=== PATIENT | female | born 1995 | race Caucasian/White ===

== ENCOUNTER 2020-08-15 10:26 | Emergency (ER) | payer MEDICAID ==
[2020-08-15] MEDS ORDERED: HYDROmorphone 0.5 MG/0.5 ML Syringe IVPUSH ONE (11:26)
[2020-08-15] MEDS ORDERED: Ondansetron 4 MG/2 ML SDV IVPUSH ONE (11:26)
[2020-08-15] MEDS ORDERED: Sodium Chloride 0.9% 10 ML Syringe FLUSH PRN (11:26)
--- NOTE | 2020-08-15 11:38 | EDM.PDOC ---
ED HPI GENERAL MEDICAL PROBLEM - General Chief Complaint: Abdominal Pain Stated Complaint: ABDOMINAL PAIN Time Seen by Provider: 08/15/20 11:07 Source of Information: Reports: Patient, RN Notes Reviewed History Limitations: Reports: No Limitations - History of Present Illness INITIAL COMMENTS - FREE TEXT/NARRATIVE: Patient is a 24-year-old female who presents to the ED for the evaluation of her lower abdominal pain. Patient notes that she was just ending her menses last week, when she had sexual intercourse, with a retained tampon as she forgot that she left it in. She was able to retrieve the tampon after the intercourse. She has been having ongoing lower abdominal pain, with moderate vaginal discomfort and dark vaginal discharge that is malodorous, for the last 2 days. She has not taken any [id number] medications for pain. She also is complaining of some constipation as she has not had a bowel movement since , and is complained of it being a really hard stool. Patient states that the pain is a very sharp pain and she is not felt this pain before ever. She notes that it sticks around her bellybutton and has not migrated to any specific spot in her abdomen. She is also complaining some burning with urination. She feels really hot then cold, and is complaining of some shortness of breath when the pain is at its worst. She is having some nausea but no vomiting. She denies any diarrhea. She is unsure if she could be at this time. Lower Abdomen Pain Score (Numeric/FACES): 8 - Related Data Allergies Allergy/AdvReac Type Severity Reaction Status Date / Time No Known Allergies Allergy Verified 08/15/20 10:41 Home Meds: Home Meds Cefdinir [Omnicef] 300 mg PO BID 14 Days #28 cap 08/15/20 [Rx] Doxycycline [Vibramycin] 100 mg PO BID 14 Days #28 tab 08/15/20 [Rx] Past Medical History HEENT History: Reports: Otitis Media Genitourinary History: Reports: UTI, Recurrent [employer] History: Reports: , Spontaneous Other [employer] History: G1,P0, spont AB1. Dermatologic History: Reports: Psoriasis - Infectious Disease History Infectious Disease History: Reports: Chicken Pox Social & Family History - Tobacco Use Tobacco Use Status *Q: Current Every Day Tobacco User Years of Tobacco use: 5 Packs/Tins Daily: 0.5 - Caffeine Use Caffeine Use: Reports: Coffee - Recreational Drug Use Recreational Drug Use: Yes Recreational Drug Type: Reports: Marijuana/Hashish ED ROS GENERAL - Review of Systems Review Of Systems: Comprehensive ROS is negative, except as noted in HPI. ED EXAM, RENAL/ - Physical Exam Exam: See Below Exam Limited By: No Limitations General Appearance: Alert, WD/WN, No Apparent Distress (pt appears to be in moderate amount of pain and is somewhat tearful on exam.) Respiratory/Chest: No Respiratory Distress, Lungs Clear, Normal Breath Sounds, No Accessory Muscle Use, Chest Non-Tender Cardiovascular: Normal Peripheral Pulses, Regular Rate, Rhythm, No Edema GI/Abdominal: Normal Bowel Sounds, Soft, No Distention, No Mass, Tender (mainly lower abdomen) (Female) Exam: Normal External Exam, Adnexal Tenderness (bilateral with manual exam.), Cervix Motion Tenderness, Vaginal Bleeding (dark malodorous dis charge vs blood in vaginal vault). No: Adnexal Mass Rectal (Female) Exam: Deferred Extremities: Normal Inspection, Normal Capillary Refill Neurological: Alert, Oriented, Normal Cognition, No Motor/Sensory Deficits Psychiatric: Anxious, Tearful Skin Exam: Warm, Dry, Intact, Normal Color, No Rash Course - Vital Signs Last Recorded V/S: Last Vital Signs Temp 98.2 F 08/15/20 13:04 Pulse 78 08/15/20 13:04 Resp 16 08/15/20 13:04 BP 111/59 L 08/15/20 13:04 Pulse Ox 100 08/15/20 13:04 - Orders/Labs/Meds Orders: Active Orders 24 hr Category Date Time Status Peripheral IV Care [RC] . DIRECTED Care 08/15/20 11:26 Ordered Sodium Chloride 0.9% [Saline Flush] Med 08/15/20 11:26 Active 10 ml FLUSH ASDIRECTED PRN Peripheral IV Insertion Adult [OM.PC] Routine Oth 08/15/20 11:26 Ordered Medication Orders Sodium Chloride (Saline Flush) 10 ml FLUSH ASDIRECTED PRN PRN Reason: Keep Vein Open Last Admin: 08/15/20 11:50 Dose: 10 ml Documented by: REESE Labs: Laboratory Tests 08/15/20 08/15/20 08/15/20 Range/Units 12:10 12:10 12:17 WBC 21.59 H (3.98-10.04) K/mm3 RBC 4.30 (3.98-5.22) M/mm3 Hgb 12.3 (11.2-15.7) gm/dl Hct 36.8 (34.1-44.9) % MCV 85.6 (79.4-94.8) fl MCH 28.6 (25.6-32.2) pg MCHC 33.4 (32.2-35.5) g/dl RDW Std Deviation 43.7 (36.4-46.3) fL Plt Count 322 (182-369) K/mm3 MPV 9.2 L (9.4-12.3) fl Neut % (Auto) 85.1 H (34.0-71.1) % Lymph % (Auto) 7.2 L (19.3-51.7) % [place] % (Auto) 7.1 (4.7-12.5) % Eos % (Auto) 0.1 L (0.7-5.8) Baso % (Auto) 0.1 (0.1-1.2) % Neut # (Auto) 18.37 H (1.56-6.13) K/mm3 Lymph # (Auto) 1.55 (1.18-3.74) K/mm3 [place] # (Auto) 1.54 H (0.24-0.36) K/mm3 Eos # (Auto) 0.02 L (0.04-0.36) K/mm3 Baso # (Auto) 0.02 (0.01-0.08) K/mm3 Manual Slide Review Abnormal smear Sodium (136-145) mEq/L Potassium (3.5-5.1) mEq/L Chloride (98-107) mEq/L Carbon Dioxide (21-32) mEq/L Anion Gap (5-15) BUN (7-18) mg/dL Creatinine (0.55-1.02) mg/dL Est Cr Clr Drug Dosing mL/min Estimated GFR (MDRD) (>60) mL/min BUN/Creatinine Ratio (14-18) Glucose (74-106) mg/dL Calcium (8.5-10.1) mg/dL Total Bilirubin (0.2-1.0) mg/dL AST (15-37) U/L ALT (14-59) U/L Alkaline Phosphatase (46-116) U/L C-Reactive Protein (<1.0) mg/dL Total Protein (6.4-8.2) g/dl Albumin (3.4-5.0) g/dl Globulin gm/dL Albumin/Globulin Ratio (1-2) Urine Color Yellow (Yellow) Urine Appearance Clear (Clear) Urine pH 6.0 (5.0-8.0) Ur Specific [place] 1.010 (1.005-1.030) Urine Protein Negative (Negative) Urine Glucose (UA) Negative (Negative) Urine Ketones Negative (Negative) Urine Occult Blood Negative (Negative) Urine Nitrite Negative (Negative) Urine Bilirubin Negative (Negative) Urine Urobilinogen 0.2 (0.2-1.0) Ur Leukocyte Esterase Negative (Negative) Urine RBC 0-5 (0-5) /hpf Urine WBC 0-5 (0-5) /hpf Ur Epithelial Cells 0-5 (0-5) /hpf Urine Bacteria Not seen (FEW) /hpf Urine Mucus Not seen (FEW) /hpf Urine HCG, Qual Negative (NEGATIVE) 08/15/20 Range/Units 12:17 WBC (3.98-10.04) K/mm3 RBC (3.98-5.22) M/mm3 Hgb (11.2-15.7) gm/dl Hct (34.1-44.9) % MCV (79.4-94.8) fl MCH (25.6-32.2) pg MCHC (32.2-35.5) g/dl RDW Std Deviation (36.4-46.3) fL Plt Count (182-369) K/mm3 MPV (9.4-12.3) fl Neut % (Auto) (34.0-71.1) % Lymph % (Auto) (19.3-51.7) % [place] % (Auto) (4.7-12.5) % Eos % (Auto) (0.7-5.8) Baso % (Auto) (0.1-1.2) % Neut # (Auto) (1.56-6.13) K/mm3 Lymph # (Auto) (1.18-3.74) K/mm3 [place] # (Auto) (0.24-0.36) K/mm3 Eos # (Auto) (0.04-0.36) K/mm3 Baso # (Auto) (0.01-0.08) K/mm3 Manual Slide Review Sodium 136 (136-145) mEq/L Potassium 3.3 L (3.5-5.1) mEq/L Chloride 99 (98-107) mEq/L Carbon Dioxide 25 (21-32) mEq/L Anion Gap 15.3 H (5-15) BUN 8 (7-18) mg/dL Creatinine 0.8 (0.55-1.02) mg/dL Est Cr Clr Drug Dosing 91.24 mL/min Estimated GFR (MDRD) > 60 (>60) mL/min BUN/Creatinine Ratio 10.0 L (14-18) Glucose 115 H (74-106) mg/dL Calcium 9.1 (8.5-10.1) mg/dL Total Bilirubin 0.5 (0.2-1.0) mg/dL AST 13 L (15-37) U/L ALT 14 (14-59) U/L Alkaline Phosphatase 51 (46-116) U/L C-Reactive Protein 30.0 H* (<1.0) mg/dL Total Protein 7.5 (6.4-8.2) g/dl Albumin 3.2 L (3.4-5.0) g/dl Globulin 4.3 gm/dL Albumin/Globulin Ratio 0.7 L (1-2) Urine Color (Yellow) Urine Appearance (Clear) Urine pH (5.0-8.0) Ur Specific [place] (1.005-1.030) Urine Protein (Negative) Urine Glucose (UA) (Negative) Urine Ketones (Negative) Urine Occult Blood (Negative) Urine Nitrite (Negative) Urine Bilirubin (Negative) Urine Urobilinogen (0.2-1.0) Ur Leukocyte Esterase (Negative) Urine RBC (0-5) /hpf Urine WBC (0-5) /hpf Ur Epithelial Cells (0-5) /hpf Urine Bacteria (FEW) /hpf Urine Mucus (FEW) /hpf Urine HCG, Qual (NEGATIVE) Meds: Medications Generic Name Dose Route Start Last Admin Trade Name Freq PRN Reason Stop Dose Admin Sodium Chloride 10 ml 08/15/20 11:26 08/15/20 11:50 Saline Flush FLUSH 10 ml ASDIRECTED PRN Administration Keep Vein Open Discontinued Medications Generic Name Dose Route Start Last Admin Trade Name Sudarshan PRN Reason Stop Dose Admin Hydromorphone HCl 0.5 mg 08/15/20 11:26 08/15/20 11:57 Dilaudid IVPUSH 08/15/20 11:27 0.5 mg ONETIME ONE Administration Ceftriaxone Sodium 2 gm/ 100 mls @ 200 mls/hr 08/15/20 12:25 08/15/20 13:03 Sodium Chloride IV 08/15/20 12:54 200 mls/hr ONETIME ONE Administration Ondansetron HCl 4 mg 08/15/20 11:26 08/15/20 11:55 Zofran IVPUSH 08/15/20 11:27 4 mg ONETIME ONE Administration - Re-Assessments/Exams Free Text/Narrative Re-Assessment/Exam: 08/15/20 11:37 Patient presents to the ED for the evaluation of her ongoing lower abdomen pain. A wet prep was taken, along with the order for basic labs, IV, and a urinalysis by quick cath. We will entertain imaging after the hCG results have been obtained. Highly suspicious for PID in nature. 08/15/20 12:04 Wet prep has resulted, there are a few clue cells, moderate white blood cells, many RBCs. No trichomoniasis. 08/15/20 12:49 Urinalysis is not suggestive of UTI. Patient's white count is markedly elevated at 21.5 with 85% neutrophils on the auto differential. Again highly likely she is suffering from pelvic inflammatory disease, we will go ahead and give her 2 g Rocephin to start. Patient was reassessed at bedside, and states she is feeling a little bit better from the nausea and pain standpoint. We will continue oral antibiotic therapy to include Omnicef twice daily and doxy twice daily for 14 days each. Regarding patient's constipation, I did talk with her about the use of stool softeners as she states it is very painful to push when she is having a BM hence why she feels constipated. I will also try to get her to increase her oral fluids. Departure - Departure Time of Disposition: 14:06 Disposition: Home, Self-Care 01 Condition: Good Clinical Impression: Pelvic inflammatory disease, female - Discharge Information *PRESCRIPTION DRUG MONITORING PROGRAM REVIEWED*: No *COPY OF PRESCRIPTION DRUG MONITORING REPORT IN PATIENT FLORIN: No Prescriptions: Cefdinir [Omnicef] 300 mg PO BID 14 Days #28 cap Doxycycline [Vibramycin] 100 mg PO BID 14 Days #28 tab Instructions: Pelvic Inflammatory Disease, [id number] Referrals: PCP,None [Primary Care Provider] - Forms: ED Department Discharge Additional Instructions: You were evaluated in the ER today for your lower abdomen pain. Work-up in the ER today is suspicious for pelvic inflammatory disease. Treatment of this is antibiotics, you were given a dose of IV antibiotics in the ER, some IV pain meds and IV nausea meds, this seemed to help make you feel better while you were here. You will be continue on 2 different dosing will be oral antibiotics, 1 tablet of each antibiotic 2 times a day x14 days. Highly recommend you use medication like Tylenol/ibuprofen every 6 hours as needed for further abdomen pain. Ibuprofen might provide you more benefit, you may take 600 mg every 6 hours. Do not exceed 4000 mg Tylenol or 3200 mg ibuprofen in a 24-hour time span. You may try heating packs to the abdomen, to provide further pain relief. Highly recommend you increase your oral hydration, and take a medication like MiraLAX, Dulcolax, Colace to help soften the stools to help provide you a bowel movement. If you are not getting much for bowel movement in the next day or 2, highly recommend you obtain a bottle of magnesium citrate which is available [id number], this will help facilitate a bowel movement. Please note that you will get some abdomen cramping if you are taking this medication. If you decide to take mag citrate, you will need to take a half bottle, wait a few hours if you do not have a rather large bowel movement, please repeat with the other half bottle. Please return to the ER at any time if your symptoms change or worsen. Sepsis Event Note (ED) - Evaluation Sepsis Screening Result: No Definite Risk - Focused Exam Vital Signs: Vital Signs Temp Pulse Resp BP Pulse Ox 08/15/20 13:04 98.2 F 78 16 111/59 L 100 08/15/20 10:35 98.5 F 106 H 18 113/74 100 - My Orders Last 24 Hours: My Active Orders 08/15/20 11:26 Peripheral IV Care [RC] . DIRECTED Sodium Chloride 0.9% [Saline Flush] 10 ml FLUSH ASDIRECTED PRN Peripheral IV Insertion Adult [OM.PC] Routine - Assessment/Plan Last 24 Hours: My Active Orders 08/15/20 11:26 Peripheral IV Care [RC] . DIRECTED Sodium Chloride 0.9% [Saline Flush] 10 ml FLUSH ASDIRECTED PRN Peripheral IV Insertion Adult [OM.PC] Routine
[2020-08-15] MEDS ORDERED: cefTRIAXone 2 GM in Sodium Chloride 0.9% 100 ML IV ONE (12:25)
== END 2020-08-15 14:25 | disposition home or self-care (01) ==
LOC: JD.ED 10:26
DX: N73.9 Female pelvic inflammatory disease, unspecified (principal); Z72.0 Tobacco use
CPT/HCPCS: 36415; 80053; 81001; 81025; 85025; 86140; 87210; 87808; 96365; 96375; 99284; J0696; J1170; J2405